=== PATIENT | male | born 1955 | race Caucasian/White ===

== ENCOUNTER 2017-06-23 19:11 | Emergency (ER) | payer BC ==
[~2017-06-23] VITALS: Ht 177.8 cm; Wt 84.1 kg
[~2017-06-23 19:11] MED LIST: CEPHALEXIN500 M1 PO; DOXAZOSIN MESYLA4 MG PO; NORCO 325 MG-51 TAB PO
[2017-06-23] MEDS ORDERED: VIBRAMYCIN HYC100 MG PO (20:55)
[2017-06-23 21:44] VITALS: BP 126/88
[2017-06-23] MEDS ORDERED: CARDURA4 M1 PO (22:01)
== END 2017-06-23 21:44 | disposition home or self-care (01) ==
LOC: ED 19:11
DX: R53.81 Other malaise (principal); I10 Essential (primary) hypertension; R50.9 Fever, unspecified; R09.89 Other specified symptoms and signs involving the circulatory and respiratory systems
CPT/HCPCS: J0696